=== PATIENT | female | born 1980 | race Two or more races ===

== ENCOUNTER 2021-07-21 21:03 | Observation (INO) | payer BC, SELFPAY ==
[2021-07-21 21:04] VITALS: BP 218/174; PULSE 97; RESP 16; TEMP 36.6; O2SAT 100; BMI 28.3
--- NOTE | 2021-07-21 21:17 | CT_ITS ---
STUDY: CT ABDOMEN AND PELVIS WITHOUT CONTRAST REASON FOR EXAM: Female, 41 years old. Pain RADIATION DOSAGE (If Supplied By Facility): CTDIvol = ( 10.25 ) mGy, DLP = ( 471.42 ) mGycm TECHNIQUE: Transaxial images were obtained from the dome of the diaphragm to the symphysis pubis without oral contrast, and without intravenous contrast. Sagittal and coronal images were reconstructed. Individualized dose optimization techniques were used for this CT. COMPARISON: None. FINDINGS: The visualized lung bases are unremarkable. The visualized portions of the heart are within normal limits. Normal liver. The gallbladder is mildly distended, measuring approximately 10 cm in length by 4.5 cm in transverse diameter. Slightly increased density noted in the dependent portion of the gallbladder suggesting sludge. No calcified gallstones are seen. No definite pericholecystic fluid or stranding is identified. The bile ducts are normal in caliber. No calcified common duct stones are noted. Normal spleen. Normal pancreas. Normal bilateral adrenal glands. Normal right kidney. Normal left kidney. No renal or obstructing ureteral stones. No hydronephrosis. Normal visualized stomach. Normal small intestine. Normal colon. The appendix is visualized and appears normal. Small nonspecific mesenteric lymph nodes are present. A few small pericecal lymph nodes are present but these do not fulfill the size criteria for mesenteric adenitis. Normal abdominal aorta. Normal inferior vena cava. Normal retroperitoneum. Normal urinary bladder. Normal size uterus and ovaries. No adnexal mass. Normal abdominal wall. No acute osseous abnormality. Mild degenerative disc disease at the L5/S1 level. CT/Abdomen/Pelvis without Cont IMPRESSION: Mildly distended gallbladder with possible sludge. Correlate with ultrasound may be of benefit to evaluate for possible cholelithiasis. No biliary ductal dilatation. Otherwise negative. Normal appendix. No findings of small bowel obstruction or obstructive uropathy. Electronically Signed: Navjot Amos MD at 22:55 EDT ,
--- NOTE | 2021-07-21 21:17 | ED.VIS.GI ---
HPI HPI - GI History of Present Illness Chief Complaint: Abd Pain Detail of Chief Complaint: Abdominal pain Informant: patient Abdominal Pain/Flank Pain Current Severity: 01/06 Narrative Narrative: Patient presents with abdominal pain intermittently for a month. Patient states that she over the last 4 days has had continuous pain with frequent nausea and vomiting. She denies any fevers. She denies diarrhea. She denies urinary symptoms. She denies blood in her stool or urine. She has a [id number] baby at home and she is not currently nursing. No prior abdominal surgeries. Patient rates the pain a 10 out of 10. PFSH PFSH Medical History no medical history Allergy/AdvReac Type Severity Reaction Status Date / Time No Known Allergies Allergy Verified 07/21/21 21:06 Social History Smoking Status: Never smoker ROS ROS ED Constitutional Constitutional ED: Reports systems reviewed and no addt'l complaints, except as documented; Denies body ache(s), change in weight or chills Eyes Eyes: Denies acute decrease in peripheral vision, change in vision, double vision or loss of vision ENT ENT ED: Reports none; Denies ear pain, lip swelling, loss taste/smell, neck pain, otalgia or sore throat Cardiovascular Cardiovascular: Reports none; Denies abdominal pain, chest pain with activity, leg edema, lightheadedness, palpitations, rapid heart rate or syncope Respiratory/Chest Respiratory/Chest: Reports none; Denies change in mental status, dry cough, dyspnea, hemoptysis, shortness of breath at rest or shortness of breath with exertion Gastrointestinal Gastrointestinal: Reports none, abdominal pain, nausea and vomiting; Denies change in stool character, diarrhea, hematemesis, hematochezia, melena or rectal bleeding Genitourinary Genitourinary ED: Reports none; Denies abdominal discomfort, anuria, dysuria, genital pain or polyuria Musculoskeletal Musculoskeletal: Reports none; Denies arthralgias, back pain, difficulty walking, extremity pain, muscle weakness or myalgias Integumentary Reports none; Denies abscess or rash Neurologic Neurologic: Reports none; Denies abnormal gait, confusion, focal weakness, frequent falls, headache(s), loss of vision, numbness, paresthesias, radicular pain, vertigo or weakness Psychiatric Psychiatric: Reports systems reviewed and no addt'l complaints, except as documented and none; Denies behavioral changes, confusion, difficulty concentrating, hallucinations, suicidal ideation, tactile hallucinations or visual hallucinations Endocrine Endocrinology: Denies none, cold intolerance, excessive sweating, fatigue or heat intolerance Hematologic/Lymphatic Hematologic/Lymphatic: Reports none; Denies anemia, easy bleeding or easy bruising Allergic/Immunologic Allergic/Immunologic ED: Denies as per HPI, none, lip swelling, mouth swelling, throat swelling, tongue swelling or hives EXAM Physical Exam Const Vital Signs: 07/21/21 21:04 07/21/21 23:24 Temperature 98 F Temperature Source Temporal Pulse Rate 97 72 Respiratory Rate 16 18 Blood Pressure 218/174 H 125/88 H Blood Pressure Mean 188 100 Pulse Ox 100 98 Oxygen Delivery Method Room Air Room Air Positive well nourished and well developed General Appearance ED: well developed and NAD HEENT Reports TM's clear and moist mucous membranes normocephalic and atraumatic; Negative for trauma or tenderness Tympanic Membrane ED: Yes TM's clear Eyes PERRL and EOMs intact bilaterally General Eye ED: Negative for pale conjunctiva or scleral icterus Neck no lymphadenopathy, supple and no JVD General: Negative for tenderness Chest Wall inspection of chest normal and palpation of chest normal Chest: Negative for tenderness Resp normal respiratory effort and clear to auscultation bilaterally Effort and Inspection: Negative for respiratory distress or pain with movement Auscultation: Negative for rhonchi, wheezes or diminished lung sounds Cardio regular rate, regular rhythm, S1 normal heart sound, S2 normal heart sound and no murmurs Peripheral Pulses: pulses 2+ throughout GI normal to inspection, nondistended, normoactive bowel sounds, soft to palpation, non-tender, non-distended and no masses Back/Spine no thoracic nor lumbar tenderness Back/Spine Narrative: Patient writhing around on cot as I enter the room. She points to her epigastric region as the source of the pain. Patient has mild diffuse tenderness over the epigastric region as well as the right upper quadrant. No Verduzco sign. There is no rebound, rigidity, peritoneal signs. Extremity normal to inspection General Extremety ED: Negative for edema General Extremity: Negative for edema Neuro oriented x3, CN's II-XII intact bilaterally, no sensory deficits noted and gait normal Sensorium / Orientation: awake, alert, oriented to person, oriented to place and oriented to time Motor Exam: strength 5/5 throughout and strength abnormal Psych mental status grossly normal Skin no rashes or lesions noted and no wounds MDM MDM MDM Narrative Medical decision making narrative: IV line established on arrival. Patient was medicated Dilaudid and Zofran. Patient initially had some mild pain relief and was given a second milligram of Dilaudid. Patient was started on Protonix and given a GI cocktail and continued to complain of severe pain. Patient was given 1/3 mg of Dilaudid IV. Lab work-up showed a slightly elevated white count of 11.7. Chemistries unremarkable. LFT showed a minimally elevated AST of 48. CT scan of the abdomen pelvis without contrast was obtained and showed moderately distended gallbladder with possibly some sludge without evidence of pericholecystic fluid or dilated ducts. At this point I discussed case with general surgeon on-call Dr. Gonsalez who recommended admission to medicine and possible GI consult for EGD. Etiology of her pain is unclear. She does not seem to have an acute abdomen but does have intractable pain. At this time etiology of pain is unclear but in the differential would be biliary colic versus gastritis versus peptic ulcer disease versus other. Discussed case with hospitalist who will evaluate patient for admission Lab Data Attestation: I reviewed the patient's lab results. Labs: Laboratory Results - last 24 hr 07/21/21 07/21/21 07/21/21 21:17 21:17 21:17 WBC 11.7 H RBC 5.33 Hgb 14.7 Hct 43.2 MCV 81.1 MCH 27.6 MCHC 34.0 RDW Std Deviation 34.6 L RDW Coeff of German 11.9 Plt Count 319 MPV 10.2 Immature Gran % (Auto) 0.300 Neut % (Auto) 65.1 Lymph % (Auto) 26.7 [place] % (Auto) 6.1 Eos % (Auto) 1.4 Baso % (Auto) 0.4 Absolute Neuts (auto) 7.6 Absolute Lymphs (auto) 3.13 Nucleated RBC % 0 Sodium 137 Potassium 4.4 Chloride 104 Carbon Dioxide 25.0 Anion Gap 8 BUN 10 Creatinine 0.81 Estim Creat Clear Calc 77.14 Est GFR (MDRD) Af Amer 101 Est GFR (MDRD) Non-Af 84 BUN/Creatinine Ratio 12.3 Glucose 116 H Lactic Acid Calcium 9.7 Total Bilirubin 0.50 AST 48 H ALT 37 Alkaline Phosphatase 83 Total Protein 8.2 Albumin 4.2 Globulin 4.0 Albumin/Globulin Ratio 1.0 Lipase 139 Serum , Qual NEGATIVE Urine Color Urine Clarity Urine pH Ur Specific [place] Urine Protein Urine Glucose (UA) Urine Ketones Urine Occult Blood Urine Nitrite Urine Bilirubin Urine Urobilinogen Ur Leukocyte Esterase Urine RBC Urine WBC Ur Squamous Epith Cells Urine Bacteria Urine Mucus 07/21/21 07/21/21 21:17 21:25 WBC RBC Hgb Hct MCV MCH MCHC RDW Std Deviation RDW Coeff of [place] Plt Count MPV Immature Gran % (Auto) Neut % (Auto) Lymph % (Auto) [place] % (Auto) Eos % (Auto) Baso % (Auto) Absolute Neuts (auto) Absolute Lymphs (auto) Nucleated RBC % Sodium Potassium Chloride Carbon Dioxide Anion Gap BUN Creatinine Estim Creat Clear Calc Est GFR (MDRD) Af Amer Est GFR (MDRD) Non-Af BUN/Creatinine Ratio Glucose Lactic Acid 1.5 Calcium Total Bilirubin AST ALT Alkaline Phosphatase Total Protein Albumin Globulin Albumin/Globulin Ratio Lipase Serum , Qual Urine Color Yellow Urine Clarity Clear Urine pH 8.0 Ur Specific [place] 1.010 Urine Protein Negative Urine Glucose (UA) Normal Urine Ketones Negative Urine Occult Blood Negative Urine Nitrite Negative Urine Bilirubin Negative Urine Urobilinogen Normal Ur Leukocyte Esterase 25 H Urine RBC 0 SEEN Urine WBC 0-5 SEEN Ur Squamous Epith Cells 0-5 SEEN Urine Bacteria 0 SEEN Urine Mucus 0 SEEN Radiography Diagnostic Testing: Clinical Impression(s) from Imaging Studies Abdomen/Pelvis CT 07/21/21 21:17 IMPRESSION: Mildly distended gallbladder with possible sludge. Correlate with ultrasound may be of benefit to evaluate for possible cholelithiasis. No biliary ductal dilatation. Otherwise negative. Normal appendix. No findings of small bowel obstruction or obstructive uropathy. Electronically Signed: Navjot Amos MD at 22:55 EDT , Discharge Plan Triage Chief Complaint: Abd Pain ED Provider: Chanel Multani Dx/Rx/DC Orders Clinical Impression: Intractable abdominal pain, Vomiting Primary Care Provider: Care Physician,No Primary Referrals: Care Physician,No Primary [Primary Care Provider] - Disposition Disposition: [facility]
[2021-07-21 21:27] LABS: Bacteria 0 SEEN /hpf (None Seen); Mucous, Urine 0 SEEN /hpf (<or=2+); Red Blood Cells-Urine 0 SEEN /hpf (0-5)
[2021-07-21] MEDS: Ondansetron 4 MG/2 ML Vial IV (21:28)
[2021-07-21] MEDS: 0.9% Normal Saline 1,000 ML 125 ML IV (21:28)
[2021-07-21] MEDS: HYDROmorphone 1 MG/ML Syringe IV ×3 (21:28→23:20)
[2021-07-21 21:30] LABS: Absolute Lymphocyte Count 3.13 X10^3/uL (0.83-4.51); Absolute Neutrophil Count 7.6 X10^3/uL (2.0-7.7); Basophil# 0.05 X10^3/uL; Basophil% 0.4 % (0-1); Eosinophil# 0.16 X10^3/uL; Eosinophils% 1.4 % (0-5); Hematocrit 43.2 % (37-47); Hemoglobin 14.7 g/dL (12.0-15.0); Lymphocyte # 3.13 X10^3/ul (0.83-4.51); Lymphocyte % 26.7 % (19-41); Mean Corpuscular Hgb 27.6 pg (27.0-32.0); Mean Corpuscular Volume 81.1 fL (81-99); Mean Platelet Vol. 10.2 fl (6.2-12.0); Monocyte# 0.72 X10^3/uL; Monocyte% 6.1 % (0-10); NRBC Flagged by Analyzer 0 % (0-5); Neutrophil # 7.62 X10^3/uL (2.7-7.7); Neutrophil % 65.1 % (47-70); Platelet Count 319 K/mm3 (150-450); RBC Distribution Width CV 11.9 % (11.6-14.6); RBC Distribution Width SD 34.6 fl (35.1-43.9); Red Blood Count 5.33 M/mm3 (4.2-5.4); White Blood Count 11.7 K/mm3 (4.4-11.0)
[2021-07-21 21:31] LABS: Color, Urine Yellow (Yellow); Glucose, Dipstick Normal (Normal); Ketone-Dipstick Negative (Negative); Leukocyte Esterase-Dipstick 25 /ul (Negative); Nitrite-Dipstick Negative (Negative); Occult Blood-Urine Negative /ul (Negative); Protein-Dipstick Negative (Negative); Urine Bilirubin Dipstick Negative (Negative); Urine Clarity Clear (Clear); Urine Urobilinogen Normal (Normal)
[2021-07-21 21:42] LABS: Internal QC Validated? YES +Cl - CLEAR BKGD; Pregnancy, Serum, hCG Quali. NEGATIVE Negative
[2021-07-21 21:43] LABS: Squamous Epithelial Cells - UA 0-5 SEEN /hpf (5-10); White Blood Cells 0-5 SEEN /hpf (0-5)
[2021-07-21 21:53] LABS: AST(SGOT) 48 U/L (15-37); Alanine Aminotransfer ALT/SGPT 37 U/L (13-56); Albumin, Serum 4.2 g/dL (3.2-5.0); Alkaline Phosphatase 83 U/L (45-117); Anion Gap 8 (5-15); BUN 10 mg/dL (7-18); BUN/Creat Ratio 12.3 RATIO (10-20); Calcium,Total 9.7 mg/dL (8.5-10.1); Chloride 104 mmol/L (98-107); Creatinine, Serum 0.81 mg/dL (0.55-1.02); EST Glomerular Filtration Rate 84 mL/min (>60); Est Glom Filt Rate - Afr Amer 101 mL/min (>60); Estimated Creatinine Clearance 77.14 ml/min; Glucose 116 mg/dL (74-106); Lipase 139 U/L (73-393); Potassium 4.4 mmol/L (3.5-5.1); Protein, Total 8.2 g/dL (6.4-8.2); Sodium Level 137 mmol/L (136-145)
[2021-07-21 21:59] LABS: Lactic Acid 1.5 mmol/L (0.4-1.9)
[2021-07-21] MEDS: Mag Hydrox/Al Hydrox/Simeth 30 ML UDC PO (23:10)
[2021-07-21 23:24] VITALS: BP 125/88; PULSE 72; RESP 18; O2SAT 98
--- NOTE | 2021-07-21 23:51 | PCM.HP.STD ---
HPI - General HPI Narrative KEVON SIMON, is a 41 F who presents with intermittent epigastric abdominal pain. She says that this has led to some bloating and intermittent episodes of emesis. She says has been going on for several months but over the last week its gotten a little bit more consistent and then tonight the pain was significant enough that she had to come into the ER. She has not tried any medications for this as an outpatient other than Pepto-Bismol which did not help but it did turn her stools dark. In the ER all of the findings were unremarkable she has a slight elevation in her white blood cell count which could be due to stress, her CT scan demonstrates a mildly distended gallbladder with possible sludge. [facility] Medical History no medical history Allergy/AdvReac Type Severity Reaction Status Date / Time No Known Allergies Allergy Verified 07/21/21 21:06 Family History (Updated 07/22/21 @ 00:[address] Jae Jennings MD) Other Cancer Diabetes Heart disease Surgical History no surgical history no surgical history Social History Smoking Status: Never smoker ROS Constitutional Constitutional: Denies chills, fatigue, fever(s) or malaise Eyes Eyes: Denies blurry vision ENT HEENT: Denies headache(s) or nasal discharge Cardiovascular Cardiovascular: Denies chest pain, dyspnea on exertion or syncope Respiratory/Chest Respiratory/Chest: Denies cough, shortness of breath at rest or shortness of breath with exertion Gastrointestinal Gastrointestinal: Reports abdominal pain, bloating, nausea and vomiting; Denies constipation or diarrhea Genitourinary Genitourinary: Denies dysuria Neurologic Neurologic: Denies focal weakness, numbness or tremor(s) Psychiatric Psychiatric: Denies anxiety or depression Vital Signs Vital Signs Vital Signs: 07/21/21 21:04 07/21/21 23:24 Temperature 98 F Temperature Source Temporal Pulse Rate 97 72 Respiratory Rate 16 18 Blood Pressure 218/174 H 125/88 H Blood Pressure Mean 188 100 Pulse Ox 100 98 Oxygen Delivery Method Room Air Room Air Weight Weight: 160 lb Body Mass Index (BMI) 28.3 Physical Exam Const alert, oriented x3 and no apparent distress General Appearance: cooperative HEENT normocephalic and moist oral mucous membranes Eyes PERRL, EOMs intact bilaterally and conjunctivae normal Neck supple and no JVD Resp normal respiratory effort, no retractions, no use of accessory muscles and clear to auscultation bilaterally Auscultation: Negative for crackles, rales, rhonchi or wheezes Cardio regular rate, regular rhythm, S1 normal heart sound, S2 normal heart sound and no murmurs GI soft to palpation, non-tender and non-distended; Negative for hepatosplenomegaly Extremity no clubbing, cyanosis or edema Skin no rashes or lesions noted Neuro no focal motor deficits and no sensory deficits noted Psych affect normal Appearance: appropriate Results Lab / Micro Data Result Diagrams: 07/21/21 21:17 07/21/21 21:17 Labs: Laboratory Results - last 24 hr 07/21/21 21:17: WBC 11.7 H, RBC 5.33, Hgb 14.7, Hct 43.2, MCV 81.1, MCH 27.6, MCHC 34.0, RDW Std Deviation 34.6 L, RDW Coeff of German 11.9, Plt Count 319, MPV 10.2, Immature Gran % (Auto) 0.300, Neut % (Auto) 65.1, Lymph % (Auto) 26.7, [place] % (Auto) 6.1, Eos % (Auto) 1.4, Baso % (Auto) 0.4, Absolute Neuts (auto) 7.6, Absolute Lymphs (auto) 3.13, Nucleated RBC % 0 07/21/21 21:17: Sodium 137, Potassium 4.4, Chloride 104, Carbon Dioxide 25.0, Anion Gap 8, BUN 10, Creatinine 0.81, Estim Creat Clear Calc 77.14, Est GFR (MDRD) Af Amer 101, Est GFR (MDRD) Non-Af 84, BUN/Creatinine Ratio 12.3, Glucose 116 H, Calcium 9.7, Total Bilirubin 0.50, AST 48 H, ALT 37, Alkaline Phosphatase 83, Total Protein 8.2, Albumin 4.2, Globulin 4.0, Albumin/Globulin Ratio 1.0, Lipase 139 07/21/21 21:17: Serum , Qual NEGATIVE 07/21/21 21:17: Urine Color Yellow, Urine Clarity Clear, Urine pH 8.0, Ur Specific [place] 1.010, Urine Protein Negative, Urine Glucose (UA) Normal, Urine Ketones Negative, Urine Occult Blood Negative, Urine Nitrite Negative, Urine Bilirubin Negative, Urine Urobilinogen Normal, Ur Leukocyte Esterase 25 H, Urine RBC 0 SEEN, Urine WBC 0-5 SEEN, Ur Squamous Epith Cells 0-5 SEEN, Urine Bacteria 0 SEEN, Urine Mucus 0 SEEN 07/21/21 21:25: Lactic Acid 1.5 Radiology Impression Abdomen/Pelvis CT 07/21/21 21:17 IMPRESSION: Mildly distended gallbladder with possible sludge. Correlate with ultrasound may be of benefit to evaluate for possible cholelithiasis. No biliary ductal dilatation. Otherwise negative. Normal appendix. No findings of small bowel obstruction or obstructive uropathy. Electronically Signed: Navjot Amos MD at 22:55 EDT , Assessment & Plan Assessment/Plan (1) Intractable abdominal pain: PLAN: 1. Intractable abdominal pain ? We will place her on Mylanta and a PPI ? We will obtain a right upper quadrant ultrasound for further clarification of the gallbladder findings on CT scan, if the gallbladder is unremarkable could likely discharge home on a PPI with outpatient follow-up ? Tylenol for pain DVT: Ambulation Charges/Coding Visit Charges OBSV E&M: 81096 Initial observation care L2
[2021-07-22] VITALS (14 sets, daily range): BP systolic 101–134; BP diastolic 64–80; PULSE 50–94; RESP 14–16; TEMP 36.3–37.3; O2SAT 92–100; BMI 28.8
--- NOTE | 2021-07-22 | GALL_PTH ---
PATIENT: KEVON SIMON LOC: MS3 U#:[id number] AGE/SX: 41/F ROOM: MA316 RE07/21/[address]: Dr. Carie Rojas MD : 1980 BED: 1 DIS: 07/23/2021 SPEC #: [id number] RECD: 07/23/21 12:44 STATUS: JESUS REQ #: [id number] ALLYSON: 07/22/21 00:[address]: Ivan Gonsalez DEPT: SURGICAL PATHOLOGY RECD BY: Mike Roy ENTERED: 07/23/21 12:44 SP TYPE: GALLBLADDE OTHR DR: MD Dr. Ivan Walker MD Dr. Nicholas F Kotsonis, MD Dr. Rahsaan Friend, DO No Primary Care Phys Tissues: Gallbladder, NOS Procedures: Surgery Specimen Level III Comments: @ Ordering doctor for SUIII edited from to DR.DPEABO Braden MUNSON at 07/23/21 1451 @ Submitting doctor edited from to @ by ARPIT at 07/23/211450 HEADER OPERATION: Laparoscopic cholecystectomy with IOC PRE-OP DIAGNOSIS: Cholelithiasis and cholecystitis TISSUE SUBMITTED: Gallbladder MICROSCOPIC DIAGNOSIS Gallbladder, cholecystectomy: Acute and chronic cholecystitis and cholelithiasis. Reactive epithelial changes. DELMER:roni 07/24/2021 MICROSCOPIC DESCRIPTION Slides are reviewed. GROSS DESCRIPTION Received is one container labeled with the patient's name and designated gallbladder. The specimen consists of a gallbladder measuring 8.5 cm in length and up to 4.5 cm in diameter. The external surface is pink-lion, smooth and glistening for the most part. Focally it is granular, hemorrhagic and contains cautery artifact. The gallbladder contains hemorrhagic mucoid bile and multiple mulberry, yellowish-green stones measuring in aggregate 3.5 x 3 x 0.5 cm and 0.5 cm in average dimension. The mucosa is congested and hemorrhagic. The gallbladder wall measures up to 0.5 cm in thickness. Director Of Reservations sections from the gallbladder and the cystic duct are submitted in one cassette. / DELMER:roni 07/23/2021 TC:2 CPT: 48413
--- NOTE | 2021-07-22 05:55 | US_ITS ---
STUDY: ABDOMINAL ULTRASOUND - RIGHT UPPER QUADRANT REASON FOR VISIT: Female, 41 years old abdominal pain, distended gallbladder TECHNIQUE: Ultrasound evaluation of the right upper quadrant was performed with real-time and static [place] rio-scale imaging. TECHNICAL QUALITY: Adequate. COMPARISON: CT abdomen and pelvis without contrast from 07/21/2021 FINDINGS: Liver: The liver measures 12.1 cm. There is normal echogenicity of the liver. The bile ducts are within normal limits. There is hepatic color flow. The direction of portal flow is hepatopetal. There is no demonstrated mass lesion. Gallbladder: Normal distended gallbladder. The gallbladder wall measures 4 mm and is slightly thickened. There is a negative sonographic Verduzco''s sign. There is trace pericholecystic fluid. Cholelithiasis and gallbladder sludge Common Bile Duct (C.B.D.): The common bile duct measures 3 mm. Pancreas: The visualized portions of the pancreatic head, body, and tail are unremarkable. Right Kidney: Normal size of the right kidney. The right kidney measures 10.3 x 3.2 x 3.6 cm. Normal renal cortex. The right cortex measures 1.3 cm. There is no demonstrated renal mass or cyst. There is no right hydronephrosis. US/Gallbladder IMPRESSION: Cholelithiasis and gallbladder sludge with slight gallbladder wall thickening and trace pericholecystic fluid which may relate to acute cholecystitis in the appropriate clinical setting. HIDA scan could also be obtained for further assessment. Electronically Signed: Carlos Austin, at 11:35 EDT ,
[2021-07-22 06:27] LABS: Absolute Lymphocyte Count 2.09 X10^3/uL (0.83-4.51); Absolute Neutrophil Count 10.4 X10^3/uL (2.0-7.7); Basophil# 0.04 X10^3/uL; Basophil% 0.3 % (0-1); Eosinophil# 0.03 X10^3/uL; Eosinophils% 0.2 % (0-5); Hematocrit 41.8 % (37-47); Hemoglobin 13.9 g/dL (12.0-15.0); Lymphocyte # 2.09 X10^3/ul (0.83-4.51); Lymphocyte % 15.4 % (19-41); Mean Corp Hgb Conc 33.3 g/dL (32-36); Mean Corpuscular Hgb 27.6 pg (27.0-32.0); Mean Corpuscular Volume 83.1 fL (81-99); Mean Platelet Vol. 10.4 fl (6.2-12.0); Monocyte# 0.91 X10^3/uL; Monocyte% 6.7 % (0-10); NRBC Flagged by Analyzer 0 % (0-5); Platelet Count 273 K/mm3 (150-450); RBC Distribution Width CV 11.9 % (11.6-14.6); RBC Distribution Width SD 35.6 fl (35.1-43.9); Red Blood Count 5.03 M/mm3 (4.2-5.4); White Blood Count 13.5 K/mm3 (4.4-11.0)
[2021-07-22 06:46] LABS: Anion Gap 5 (5-15); BUN 8 mg/dL (7-18); BUN/Creat Ratio 12.7 RATIO (10-20); Calcium,Total 8.3 mg/dL (8.5-10.1); Chloride 104 mmol/L (98-107); Creatinine, Serum 0.63 mg/dL (0.55-1.02); EST Glomerular Filtration Rate 111 mL/min (>60); Est Glom Filt Rate - Afr Amer 135 mL/min (>60); Estimated Creatinine Clearance 99.17 ml/min; Glucose 121 mg/dL (74-106); Potassium 3.7 mmol/L (3.5-5.1); Sodium Level 135 mmol/L (136-145)
--- NOTE | 2021-07-22 09:36 | PN.HOSP_ITS ---
Subjective Subjective Follow-up on acute abdominal pain: Patient was seen and examined. She complains of severe crampy epigastric pain, a ggravated by vomiting, with no relieving factors. Her epigastric pain is not related to food and she feels hungry at the time of exam. It appeared to be mostly at night except in the last few days when it has been constant. She stated she has seen black tarry stools but that coincided with start of Pepto- Bismol. She denies any diarrhea or fever or chills. Objective Data Objective Data Vital Signs: Vital Signs Temp Pulse Resp BP Pulse Ox 99.2 F H 77 16 126/80 H 98 07/22/21 07:57 07/22/21 07:57 07/22/21 07:57 07/22/21 07:57 07/22/21 07:57 Oxygen Delivery Method Room Air Weight: 73.7 kg Body Mass Index (BMI) 28.8 Intake & Output: Intake and Output for Last 24 Hours 07/20/21 07/21/21 07/22/21 23:59 23:59 23:59 Intake Total 110 / 110 1120 / 1120 Balance 110 / 110 1120 / 1120 Lab / Micro Data Result Diagrams: 07/22/21 05:30 07/22/21 05:30 Labs: Laboratory Results - last 24 hr 07/21/21 21:17: WBC 11.7 H, RBC 5.33, Hgb 14.7, Hct 43.2, MCV 81.1, MCH 27.6, MCHC 34.0, RDW Std Deviation 34.6 L, RDW Coeff of German 11.9, Plt Count 319, MPV 10.2, Immature Gran % (Auto) 0.300, Neut % (Auto) 65.1, Lymph % (Auto) 26.7, [place] % (Auto) 6.1, Eos % (Auto) 1.4, Baso % (Auto) 0.4, Absolute Neuts (auto) 7.6, Absolute Lymphs (auto) 3.13, Nucleated RBC % 0 07/21/21 21:17: Sodium 137, Potassium 4.4, Chloride 104, Carbon Dioxide 25.0, Anion Gap 8, BUN 10, Creatinine 0.81, Estim Creat Clear Calc 77.14, Est GFR (MDRD) Af Amer 101, Est GFR (MDRD) Non-Af 84, BUN/Creatinine Ratio 12.3, Glucose 116 H, Calcium 9.7, Total Bilirubin 0.50, AST 48 H, ALT 37, Alkaline Phosphatase 83, Total Protein 8.2, Albumin 4.2, Globulin 4.0, Albumin/Globulin Ratio 1.0, Lipase 139 07/21/21 21:17: Serum , Qual NEGATIVE 07/21/21 21:17: Urine Color Yellow, Urine Clarity Clear, Urine pH 8.0, Ur Specific [place] 1.010, Urine Protein Negative, Urine Glucose (UA) Normal, Urine Ketones Negative, Urine Occult Blood Negative, Urine Nitrite Negative, Urine Bilirubin Negative, Urine Urobilinogen Normal, Ur Leukocyte Esterase 25 H, Urine RBC 0 SEEN, Urine WBC 0-5 SEEN, Ur Squamous Epith Cells 0-5 SEEN, Urine Bacteria 0 SEEN, Urine Mucus 0 SEEN 07/21/21 21:25: Lactic Acid 1.5 07/22/21 05:30: Sodium 135 L, Potassium 3.7, Chloride 104, Carbon Dioxide 26.0, Anion Gap 5, BUN 8, Creatinine 0.63, Estim Creat Clear Calc 99.17, Est GFR (MDRD) Af Amer 135, Est GFR (MDRD) Non-Af 111, BUN/Creatinine Ratio 12.7, Glucose 121 H, Calcium 8.3 L 07/22/21 05:30: WBC 13.5 H, RBC 5.03, Hgb 13.9, Hct 41.8, MCV 83.1, MCH 27.6, MCHC 33.3, RDW Std Deviation 35.6, RDW Coeff of German 11.9, Plt Count 273, MPV 10.4, Immature Gran % (Auto) 0.400, Neut % (Auto) 77.0 H, Lymph % (Auto) 15.4 L, [place] % (Auto) 6.7, Eos % (Auto) 0.2, Baso % (Auto) 0.3, Absolute Neuts (auto) 10.4 H, Absolute Lymphs (auto) 2.09, Nucleated RBC % 0 Radiography Diagnostic Testing: Radiology Impression Abdomen/Pelvis CT 07/21/21 21:17 IMPRESSION: Mildly distended gallbladder with possible sludge. Correlate with ultrasound may be of benefit to evaluate for possible cholelithiasis. No biliary ductal dilatation. Otherwise negative. Normal appendix. No findings of small bowel obstruction or obstructive uropathy. Electronically Signed: Navjot Amos MD at 22:55 EDT , Physical Exam Narrative Physical exam: General: Alert, Oriented x3, Cooperative, in pain, mildly dehydrated HEENT: Atraumatic Oral: Dry oral Mucosa Neck: Supple Lungs: Diminished to auscultation Cardiovascular: HS I+II, regular, no murmurs Abdomen: Bowel Sounds Present, soft, epigastric tenderness++, mild RUQ tenderness without guarding or RBT Extremities: No edema Assessment & Plan Assessment/Plan (1) Intractable abdominal pain: PLAN: 1. Acute intractable abdominal pain, likely secondary to acute gastritis vs PUD vs biliary colic CT abd/pelvis showed biliary sludge but no gallstone Will follow-up on gallbladder USG Continue NPO, IVF, IV PPI BID 2. Leukocytosis, likely reactive, will continue to follow 3. DVT PPx - low risk, early ambulation Charges/Coding Visit Charges OBSV E&M: 32014 Subsequent observation care L3
[2021-07-22] MEDS: Morphine 2 MG/ML Syringe 1 MG IV (09:46)
[2021-07-22] MEDS: 0.9% Saline Lock 10 ML Syringe IV ×2 (09:47→18:44)
[2021-07-22] MEDS: Ondansetron 4 MG/2 ML Vial IV (09:47)
[2021-07-22] MEDS: 0.9% Normal Saline 1,000 ML 75 ML IV (10:53)
--- NOTE | 2021-07-22 13:15 | CON.PCM.SX_ITS ---
Assessment & Plan Assessment/Plan (1) Cholelithiasis and cholecystitis without obstruction: QUALIFIERS: Cholelithiasis location: gallbladder Cholecystitis acuity: acute Qualified Code(s): K80.00 - Calculus of gallbladder with acute ch olecystitis without obstruction PLAN: My plan is to perform a laparoscopic cholecystectomy with intraoperative cholangiogram. The planned surgical procedure was discussed extensively with the patient. The risks, benefits, anticipated outcomes and possible complication were mentioned. My staff has also explained the procedure in understandable terms and the patient was given the option to take printed material concerning the planned procedure. The patient had the opportunity to ask questions concerning the planned procedure. The patient freely consents to the planned procedure. HPI Consult Data Date of Consult: 07/22/21 HPI Narrative HPI Narrative: KEVON SIMON, is a 41 F who presents with intermittent epigastri c abdominal pain. She says that this has led to some bloating and intermittent episodes of emesis. She says has been going on for several months but over the last week its gotten a little bit more consistent and then tonight the pain was significant enough that she had to come into the ER. She has not tried any medications for this as an outpatient other than Pepto-Bismol which did not help but it did turn her stools dark. In the ER all of the findings were unremarkable she has a slight elevation in her white blood cell count which could be due to stress, her CT scan demonstrates a mildly distended gallbladder with possible sludge. Gallbladder ultrasound impression: Cholelithiasis and gallbladder sludge with slight gallbladder wall thickening and trace pericholecystic fluid which may relate to acute cholecystitis in the appropriate clinical setting. HIDA scan could also be obtained for further assessment. PFSH Medical History Depression GERD (gastroesophageal reflux disease) Medical History no medical history Allergy/AdvReac Type Severity Reaction Status Date / Time No Known Allergies Allergy Verified 07/21/21 21:06 Family History Other Cancer Diabetes Heart disease Surgical History no surgical history Social History Smoking Status: Never smoker ROS Constitutional Constitutional: Denies chills, fatigue or fever(s) Cardiovascular Cardiovascular: Denies chest pain or chest pain with activity Respiratory/Chest Respiratory/Chest: Denies cough or shortness of breath at rest Gastrointestinal Gastrointestinal: Reports abdominal pain, bloating, nausea and vomiting; Denies constipation or diarrhea Genitourinary Genitourinary: Denies dysuria Physical Exam Const alert, oriented x3 and no apparent distress General Appearance: cooperative HEENT normocephalic and head/scalp atraumatic Eyes PERRL and EOMs intact bilaterally Resp clear to auscultation bilaterally Cardio Rate: regular rate Rhythm: regular rhythm GI soft to palpation Palpation: tender RUQ Lab / Micro Data Result Diagrams: 07/22/21 05:30 07/22/21 05:30 Labs: Laboratory Results - last 24 hr 07/21/21 21:17: WBC 11.7 H, RBC 5.33, Hgb 14.7, Hct 43.2, MCV 81.1, MCH 27.6, MCHC 34.0, RDW Std Deviation 34.6 L, RDW Coeff of German 11.9, Plt Count 319, MPV 10.2, Immature Gran % (Auto) 0.300, Neut % (Auto) 65.1, Lymph % (Auto) 26.7, [place] % (Auto) 6.1, Eos % (Auto) 1.4, Baso % (Auto) 0.4, Absolute Neuts (auto) 7.6, Absolute Lymphs (auto) 3.13, Nucleated RBC % 0 07/21/21 21:17: Sodium 137, Potassium 4.4, Chloride 104, Carbon Dioxide 25.0, Anion Gap 8, BUN 10, Creatinine 0.81, Estim Creat Clear Calc 77.14, Est GFR (MDRD) Af Amer 101, Est GFR (MDRD) Non-Af 84, BUN/Creatinine Ratio 12.3, Glucose 116 H, Calcium 9.7, Total Bilirubin 0.50, AST 48 H, ALT 37, Alkaline Phosphatase 83, Total Protein 8.2, Albumin 4.2, Globulin 4.0, Albumin/Globulin Ratio 1.0, Lipase 139 07/21/21 21:17: Serum , Qual NEGATIVE 07/21/21 21:17: Urine Color Yellow, Urine Clarity Clear, Urine pH 8.0, Ur Specific [place] 1.010, Urine Protein Negative, Urine Glucose (UA) Normal, Urine Ketones Negative, Urine Occult Blood Negative, Urine Nitrite Negative, Urine Bilirubin Negative, Urine Urobilinogen Normal, Ur Leukocyte Esterase 25 H, Urine RBC 0 SEEN, Urine WBC 0-5 SEEN, Ur Squamous Epith Cells 0-5 SEEN, Urine Bacteria 0 SEEN, Urine Mucus 0 SEEN 07/21/21 21:25: Lactic Acid 1.5 07/22/21 05:30: Sodium 135 L, Potassium 3.7, Chloride 104, Carbon Dioxide 26.0, Anion Gap 5, BUN 8, Creatinine 0.63, Estim Creat Clear Calc 99.17, Est GFR (MDRD) Af Amer 135, Est GFR (MDRD) Non-Af 111, BUN/Creatinine Ratio 12.7, Glucose 121 H, Calcium 8.3 L 07/22/21 05:30: WBC 13.5 H, RBC 5.03, Hgb 13.9, Hct 41.8, MCV 83.1, MCH 27.6, MCHC 33.3, RDW Std Deviation 35.6, RDW Coeff of German 11.9, Plt Count 273, MPV 10.4, Immature Gran % (Auto) 0.400, Neut % (Auto) 77.0 H, Lymph % (Auto) 15.4 L, [place] % (Auto) 6.7, Eos % (Auto) 0.2, Baso % (Auto) 0.3, Absolute Neuts (auto) 10.4 H, Absolute Lymphs (auto) 2.09, Nucleated RBC % 0 Radiology Impression Abdomen/Pelvis CT 07/21/21 21:17 IMPRESSION: Mildly distended gallbladder with possible sludge. Correlate with ultrasound may be of benefit to evaluate for possible cholelithiasis. No biliary ductal dilatation. Otherwise negative. Normal appendix. No findings of small bowel obstruction or obstructive uropathy. Electronically Signed: Navjot Amos MD at 22:55 EDT , Gallbladder Ultrasound 07/22/21 05:55 IMPRESSION: Cholelithiasis and gallbladder sludge with slight gallbladder wall thickening and trace pericholecystic fluid which may relate to acute cholecystitis in the appropriate clinical setting. HIDA scan could also be obtained for further assessment. Electronically Signed: Carlos Avila, at 11:35 EDT ,
--- NOTE | 2021-07-22 13:30 | EKG12_ITS ---
Test Reason : PRE OP Blood Pressure : / mmHG Vent. Rate : 072 BPM Atrial Rate : 072 BPM P-R Int : 140 ms QRS Dur : 076 ms QT Int : 368 ms P-R-T Axes : 042 032 030 degrees QTc Int : 402 ms Normal sinus rhythm Normal ECG Confirmed by WILL ABBOTT, CUAUHTEMOC ([id number]), material expeditor EVELYN GALINDO ([id number]) on 07/24/2021 10:08:26 AM Referred By: TRACEY Confirmed By:CUAUHTEMOC SOLIS MD
--- NOTE | 2021-07-22 14:17 | NURSING ---
Pt to surgery for lap sedrick via [facility], OR transporter. Family members aware and waiting in surgery waiting area.
[2021-07-22 14:27] LABS: Internal QC Validated? YES +Cl - CLEAR BKGD
[2021-07-22 14:28] LABS: Pregnancy, Urine Negative Negative
[2021-07-22] MEDS: Cefazolin 2 GM in 0.9% Normal Saline 100 ML IV (15:31)
--- NOTE | 2021-07-22 15:45 | RAD_ITS ---
CLINICAL HISTORY: Female, 41 years old. Abdominal pain. PROCEDURE: CHOLANGIOGRAM - intraoperative FLUOROSCOPY TIME (if supplied): 24.9 seconds TECHNIQUE: Fluoroscopic guidance was provided in the OR during the performance of a intraoperative cholangiogram. There is a cine aligned with 30 images demonstrate contrast injected through the cystic duct stump. There is opacification of a normal-appearing CBD with contrast flowing into the duodenum. There is also a series of 37 images demonstrate injection of contrast through the cystic duct stump. The visualized intra and extrahepatic bile ducts are normal without filling defect. Please refer to the procedural report for further details. RAD/Cholangiogram/ O R,Initial IMPRESSION: Fluoroscopy provided during an intraoperative cholangiogram. Electronically Signed: Brian Toro DO at 22:05 EDT ,
--- NOTE | 2021-07-22 16:01 | CASEMGMT ---
TORY CM in to pt room to discuss insurance questions. Spoke with pt family member, pt out of room. Answered questions to his satisfaction. He also is aware he may call his insurance company for further clarification if needed. He is aware that [facility] is in network with insurance.
[2021-07-22] MEDS: Sugammadex Sodium 200 MG/2 ML VIAL IV (16:38)
--- NOTE | 2021-07-22 16:39 | PCM.OPRPT ---
Problems Associated Problem List Diagnoses (1) Cholelithiasis and cholecystitis without obstruction: Report of Operation Date of Procedure: 07/22/21 Pre-Operative Diagnosis: Acute calculus cholecystitis Post-Operative Diagnosis: Same Surgery/Procedure Performed:: laparoscopically cystectomy with intraoperative cholangiograms Surgeon: Ivan Gonsalez ssrs report developer: Yolanda Dawson Type of Anesthesia: General Anesthesiologist: Angel Luis Ramirez Specimen's removed: Gallbladder Drains: None Estimated Blood Loss (mL): 50 cc Description of Procedure: Patient was brought into the operating room. Placed in the supine position. Under excellent general endotracheal ovation the abdomen was sterilely prepped and draped in usual fashion. Local was injected infraumbilically. Dissection was carried down to the fascia. The fascia was grasped with a [place]. Varies needle was placed inside the abdomen. The abdomen was insufflated to 15 torr. A 10/12 trocar was placed without difficulty. Patient was placed in the head up and rotated to the left position. A subxiphoid #5 trocar was placed, inferior to this another #5 trocar was placed, laterally a #5 trocar was placed. All of these were placed under direct visualization without injury to underlying structures. I aspirated out the gallbladder it was whitish fluid consistent with hydrops. Fundus of the gallbladder was grasped and retracted in cephalad direction. Infundibulum was grasped retracted laterally. She had somewhat of an abnormal anatomy with the cystic artery being anterior to the cystic duct I dissected this free placed hemoclips proximally and distally and ligated the artery. I then dissected down further dissecting out the cystic duct and the posterior branch of the cystic artery. I placed hemoclips proximally on the duct neck the duct placed an angiogram catheter through the skin and a cholangiogram catheter through this. Shot a cholangiogram which showed normal ductal anatomy. Removed the cholangiogram catheter in place another clip on the duct and then ligated the duct. Placed a Hemoclip on the posterior branch of the cystic artery. I deliver the gallbladder from the gallbladder bed with use of electrocautery. It was very edematous liver bed bled easily and was oozy. Once I got the gallbladder out I placed in a specimen bag and delivered through the umbilical port without difficulty. Attention was then drawn back to the liver bed itself with the use of electrocautery I was able to achieve good pneumostasis on the liver bed. When I was completed I placed Jessie on the liver bed I saw no signs of any continuing bleeding. The trochars were removed under direct visualization. Fascia the umbilical port was closed with a [id number] stitch of 0 Vicryl. Skin incisions were closed with subcuticular stitches of 4-0 Monocryl. Steri-Strips were applied sterile dressings were applied and the patient tolerated the procedure well. Admit VTE Documentation VTE Present on Admission: No VTE Mechan Device Prophylaxis: SCD's VTE Pharm Prophylaxis ordered?: No Reason prophylaxis not ordered:: Treatment Not Indicated
--- NOTE | 2021-07-22 16:48 | EX.PCM.DISCH ---
Discharge Instructions Procedure Gallbladder Diet Discharge Diet: Light diet - advance as tolerated Activity Discharge Activity: May Not Drive (for 2-3 days or while taking narcotic pain medications.) and - (Do not drive, work heavy equipment or sign legal documents for 24 hours.) May shower in (days): 1 (with the bandage in place.) Additional Activity Instructions:: Pain medication may cause nausea. You should typically eat light foods as you take your pain medications. Pain medication may also cause constipation. If this is a problem for you, please discuss with your doctor. Dressing / Incision Call your doctor if your incision/area has: Continuous Slow Oozing, Sudden Increased Bleeding, Increased Pain/ Swelling, Increased Redness and Foul Smelling Discharge Call your doctor if you observe: Fever of 101 or Higher Suture Line Care: Avoid Pulling/Pushing and Avoid Pinching/Bending Additional Dressing/Incision Instructions:: Leave operative bandaids on for 2 days. When you remove dressing, leave Steri-Strips on until your follow-up appointment, or until the Steri-Strips fall off on their own. Follow Up Care Please Follow Up With: Patti Penny PA-C When: Call office to schedule an appointment to be seen in 7 days after surgery. Test Results: Test results from this visit will be discussed in further detail at your follow-up appointment, if applicable. Discharge Plan Admission Admit Date/Time: 07/21/21 23:48 Attending Provider: Carie Rojas Primary Care Provider: Care Physician,No Primary Consulting Providers: Augustus Damon ; Ivan Gonsalez Discharge Orders/Prescriptions Prescriptions: New oxycodone-acetaminophen [Percocet] 5-325 mg tablet 1 tab PO Q4H PRN (Reason: pain) 5 Days Qty: 20 RF: 0 Referrals / Follow Up: Care Physician,No Primary [Primary Care Provider] - Patti Penny PA-C [PHYSICIAN HOSPICE MUSIC THERAPY] -
[2021-07-22] MEDS: 0.9% Normal Saline 1,000 ML 100 ML IV (18:44)
[2021-07-23 02:32] VITALS: BP 115/75; PULSE 91; RESP 18; TEMP 36.9; O2SAT 97
[2021-07-23] MEDS: 0.9% Normal Saline 1,000 ML 100 ML IV (05:17)
--- NOTE | 2021-07-23 07:36 | CON.PCM_ITS ---
Assessment & Plan Assessment/Plan (1) Cholelithiasis and cholecystitis without obstruction: QUALIFIERS: Cholelithiasis location: gallbladder Cholecystitis acuity: acute Qualified Code(s): K80.00 - Calculus of gallbladder with acute ch olecystitis without obstruction PLAN: She is doing well. Her white blood cell count is decreasing. She can have a low-fat diet. Discharge as per surgery. (2) Intractable abdominal pain: PLAN: Abdominal pain is improved. I would have her get stool testing for H. pylori as an outpatient. (3) GERD (gastroesophageal reflux disease): PLAN: Due to the fact that she does have had a history of gastroesophageal reflux disease and she is status post cholecystectomy I would put her on p antoprazole therapy 40 mg a day for approximately 8 weeks and slowly wean that off as her body gets used to having it increased bile. This will help decrease the chances of bile reflux gastritis and bile reflux esophagitis. HPI Consult Data Date of Consult: 07/23/21 HPI Narrative HPI Narrative: KEVON SIMON, is a 41 F who presents with abdominal pain intermittently for a month. She has a past medical history of occasional heartburn. She did have pretty significant reflux disease when she was . She does not take any medicines on a daily basis for heartburn.Patient states that she over the last 4 days has had continuous pain with frequent nausea and vomiting. She denies any fevers. She denies diarrhea. She denies urinary symptoms. She denies blood in her stool or urine. She has a [id number] baby at home and she is not currently nursing. No prior abdominal surgeries. Patient rates the pain a 10 out of 10.She underwent b iochemical testing and it showed an increased white blood cell count with mild dehydration and hypokalemia.She had an ultrasound that had shown a Thickened gallbladder wall. She underwent a cholecystectomy yesterday and was discovered to have acute cholecystitis. This morning she is not having much abdominal pain at all. She said the pain that she had previously is gone. She is concerned about possible gastritis and the need to take medicines. [facility] Medical History (Updated 07/23/21 @ 07:[address] Coffman Friend, ) Depression GERD (gastroesophageal reflux disease) Medical History no medical history Home Medications oxycodone-acetaminophen [Percocet] 1 tab PO Q4H PRN 5 Days #20 tab 07/22/21 [Rx Last Taken Unknown] Allergy/AdvReac Type Severity Reaction Status Date / Time No Known Allergies Allergy Verified 07/21/21 21:06 Family History Other Cancer Diabetes Heart disease Surgical History no surgical history Social History Smoking Status: Never smoker ROS Review of Systems ROS Unobtainable: other Constitutional Constitutional: Denies fatigue, fever(s), poor appetite, weight gain or weight loss ENT HEENT: Denies mouth lesions Cardiovascular Cardiovascular: Denies abdominal bloating, abdominal edema or abdominal pain Respiratory/Chest Respiratory/Chest: Denies change in mental status, change in phlegm color, chest congestion or chest tightness Gastrointestinal Gastrointestinal: Denies belching, bloating, change in bowel habits, change in stool character, chewing difficulty, coffee ground emesis, constipation, cramping, diarrhea, dyspepsia, dysphagia, early satiety, excessive flatus, fecal incontinence, heartburn, hematemesis, hematochezia, hemorrhoids, loose stools, melena, nausea, odynophagia, rectal bleeding, tenesmus, vomiting or weight changes Genitourinary Genitourinary: Denies abdominal discomfort, burning urination or itching Musculoskeletal Musculoskeletal: Reports as per HPI; Denies muscle weakness or myalgias Integumentary Integumentary: Denies jaundice Neurologic Neurologic: Denies lack of coordination or weakness Psychiatric Psychiatric: Denies confusion, depression, memory loss, mood swings, paranoia or suicidal ideation Endocrine Endocrinology: Denies systems reviewed and no addt'l complaints, except as documented Hematologic/Lymphatic Hematologic/Lymphatic: Denies anemia, easy bleeding, easy bruising or lymphadenopathy Allergic/Immunologic Allergic/Immunologic: Denies systems reviewed and no addt'l complaints, except as documented Physical Exam Const alert General Appearance: cooperative Orientation / Consciousness: oriented to person HEENT hearing grossly normal bilaterally Head and Scalp: normal to inspection Face and Sinus: face symmetric Nose: external nose normal Mouth: oral and palatal mucosa normal Eyes conjunctivae normal General Eye: normal appearance of both eyes Neck full ROM General: normal visual inspection Lymph Lymphatic: no lymphadenopathy noted Chest inspection of chest normal and palpation of chest normal Chest: symmetrical chest wall rise Resp normal respiratory effort Effort and Inspection: able to speak in complete sentences Cardio regular rate GI non-distended Percussion: normal to percussion Rectal Exam: deferred Neuro Speech: speech normal Gait (Neuro): normal gait Lab / Micro Data Result Diagrams: 07/22/21 05:30 07/22/21 05:30 Labs: Laboratory Results - last 24 hr 07/22/21 13:56: Urine Test Negative Micro: Microbiology 07/22/21 14:55 Interface Orders SARS-CoV-2 Antigen (Rapid) - Final Radiology Impression Gallbladder Ultrasound 07/22/21 05:55 IMPRESSION: Cholelithiasis and gallbladder sludge with slight gallbladder wall thickening and trace pericholecystic fluid which may relate to acute cholecystitis in the appropriate clinical setting. HIDA scan could also be obtained for further assessment. Electronically Signed: Carlos Avila, at 11:35 EDT Reading Location ID and State: [facility] / [place] Tel , Service support , Cholangiogram 07/22/21 15:45 IMPRESSION: Fluoroscopy provided during an intraoperative cholangiogram. Electronically Signed: Brian Toro DO at 22:05 EDT , Charges/Coding Visit Charges Inpatient E&M: 31120 Init Hosp L3
[2021-07-23 08:03] LABS: Absolute Lymphocyte Count 1.51 X10^3/uL (0.83-4.51); Absolute Neutrophil Count 10.7 X10^3/uL (2.0-7.7); Basophil# 0.02 X10^3/uL; Basophil% 0.1 % (0-1); Hematocrit 38.3 % (37-47); Hemoglobin 12.8 g/dL (12.0-15.0); Lymphocyte # 1.51 X10^3/ul (0.83-4.51); Lymphocyte % 11.3 % (19-41); Mean Corp Hgb Conc 33.4 g/dL (32-36); Mean Corpuscular Hgb 27.9 pg (27.0-32.0); Mean Corpuscular Volume 83.4 fL (81-99); Mean Platelet Vol. 9.8 fl (6.2-12.0); Monocyte# 1.13 X10^3/uL; Monocyte% 8.5 % (0-10); NRBC Flagged by Analyzer 0 % (0-5); Neutrophil # 10.65 X10^3/uL (2.7-7.7); Neutrophil % 79.7 % (47-70); Platelet Count 249 K/mm3 (150-450); RBC Distribution Width CV 11.9 % (11.6-14.6); RBC Distribution Width SD 36.4 fl (35.1-43.9); Red Blood Count 4.59 M/mm3 (4.2-5.4); White Blood Count 13.4 K/mm3 (4.4-11.0)
[2021-07-23 08:23] LABS: ALB/GLOB Ratio 0.8 RATIO (0.9-2.4); AST(SGOT) 81 U/L (15-37); Alanine Aminotransfer ALT/SGPT 65 U/L (13-56); Albumin, Serum 2.9 g/dL (3.2-5.0); Alkaline Phosphatase 62 U/L (45-117); Anion Gap 7 (5-15); BUN 8 mg/dL (7-18); BUN/Creat Ratio 10.9 RATIO (10-20); Calcium,Total 8.3 mg/dL (8.5-10.1); Chloride 108 mmol/L (98-107); Creatinine, Serum 0.74 mg/dL (0.55-1.02); EST Glomerular Filtration Rate 93 mL/min (>60); Est Glom Filt Rate - Afr Amer 113 mL/min (>60); Estimated Creatinine Clearance 84.43 ml/min; Globulin 3.6 g/dL (2.2-4.2); Glucose 113 mg/dL (74-106); Potassium 3.7 mmol/L (3.5-5.1); Protein, Total 6.5 g/dL (6.4-8.2); Sodium Level 139 mmol/L (136-145)
--- NOTE | 2021-07-23 09:42 | PCM.DC ---
Discharge Instructions Diet Discharge Diet: Light diet - advance as tolerated Activity May shower in (days): 1 (with the bandage in place.) Additional Activity Instructions:: Pain medication may cause nausea. You should typically eat light foods as you take your pain medications. Pain medication may also cause constipation. If this is a problem for you, please discuss with your doctor. Dressing / Incision Call your doctor if your incision/area has: Continuous Slow Oozing, Sudden Increased Bleeding, Increased Pain/ Swelling, Increased Redness and Foul Smelling Discharge Call your doctor if you observe: Fever of 101 or Higher Suture Line Care: Avoid Pulling/Pushing and Avoid Pinching/Bending Additional Dressing/Incision Instructions:: Leave operative bandaids on for 2 days. When you remove dressing, leave Steri-Strips on until your follow-up appointment, or until the Steri-Strips fall off on their own. Follow Up Care Please Follow Up With: Patti Penny PA-C Test Results: Test results from this visit will be discussed in further detail at your follow-up appointment, if applicable. Discharge Plan Admission Admit Date/Time: 07/21/21 23:48 Primary Reason for Your Visit: Acute abdominal pain Attending Provider: Carie Rojas Primary Care Provider: Care Physician,Kelsi Primary Consulting Providers: Augustus Damon ; Ivan Gonsalez Instructions Additional Instructions / Restrictions: You can take Ibuprofen 400mg every 6-8 hours alternating with Tylenol 650mg every 6 hours as needed for pain. You will need to see your primary care doctor within 1 week for repeat blood work. Discharge Orders/Prescriptions Prescriptions: New oxycodone-acetaminophen [Percocet] 5-325 mg tablet 1 tab PO Q4H PRN (Reason: pain) 5 Days Qty: 20 RF: 0 pantoprazole [Protonix] 40 mg tablet,delayed release (DR/EC) 40 mg PO DAILY 30 Days Qty: 30 RF: 0 Referrals / Follow Up: Care Physician,No Primary [Primary Care Provider] - Patti Penny PA-C [PHYSICIAN FAMILY SERVICE COUNSELOR] - Augustus Damon DO [STAFF PHYSICIAN] - Within 2 Weeks (if abdominal pain persists) Disposition Disposition (needs filled in before D/C Order can be placed): Home, Self Care
--- NOTE | 2021-07-23 09:47 | DS.PCM_ITS ---
Providers Date of Admission: 07/21/21 Date of Discharge: 07/23/21 Primary Care Physician: Kelsi Primary Care Phys Consultations 07/22/21 09:56 Consult: Gastroenterology Routine Consulting Provider: Augustus Damon Reason for Consult: Dyspepsia EMERGENT Consult: No Notified: Yes Date Notified: 07/22/21 Time Notified: 09:56 Method of Notification: Text Comments:: Text sent via [employer] phone 07/22/21 12:25 Consult: General Surgery Routine Consulting Provider: Ivan Gonsalez Reason for Consult: Abnormal gallbladder USG EMERGENT Consult: No Notified: Yes Date Notified: 07/22/21 Time Notified: 12:35 Method of Notification: Text Reason For Visit: ABD PAIN Diagnosis Discharge Diagnosis (1) Cholelithiasis and cholecystitis without obstruction: Status: Resolved Code(s): K80.10 - Calculus of gallbladder with chronic cholecystitis without obstruction Qualifiers: Cholecystitis acuity: acute Cholelithiasis location: gallbladder Qualified Code(s): K80.00 - Calculus of gallbladder with acute cholecystitis without obstruction (2) Intractable abdominal pain: Status: Resolved Code(s): R10.9 - Unspecified abdominal pain (3) GERD (gastroesophageal reflux disease): Status: Chronic Code(s): K21.9 - Gastro-esophageal reflux disease without esophagitis Medications at Discharge Home Medications oxycodone-acetaminophen [Percocet] 1 tab PO Q4H PRN 5 Days #20 tab 07/22/21 pantoprazole [Protonix] 40 mg PO DAILY 30 Days #30 tab 07/23/21 Hospital Course Operations cholecystecomy (lap sedrick 07/23/21) Procedures None Summary of Care Provided Minutes Spent on Discharge: 35 Hospital Course: 41-year-old with past medical history of GERD, who comes in with intermittent epigastric and right upper quadrant pain that has been ongoing for several months, worsening over the last couple of days prior to admission. This was associated with nausea and vomiting. Patient used to take Pepto- Bismol but that was not helping anymore. Denied any fever or chills. Her admi tting CT of the abdomen pelvis on admission showed some sludge in the gallbladder. Patient was admitted [facility] floor for pain control and an ultrasound of the gallbladder showed cholelithiasis, sludge, trace pericholecystic fluid suggestive for acute cholecystitis General surgery and GI were consulted. Patient underwent laparoscopic cholecystectomy on 07/22/21. Postoperatively, patient continued to do well. She was discharged home on PPI daily. She will follow-up if her abdominal pain persists with GI. She also follow-up with her primary care doctor within 1 week. Physical Exam Narrative Physical exam: General: Alert, Oriented x3, Cooperative, in pain, mildly dehydrated HEENT: Atraumatic Oral: Moist oral Mucosa Neck: Supple Lungs: Diminished to auscultation Cardiovascular: HS I+II, regular, no murmurs Abdomen: Bowel Sounds Present, soft, laparoscopic dressing in situ, Extremities: No edema Weight / BMI Weight Weight: 75.206 kg Body Mass Index (BMI) 28.8 ABG / Lab / Microbiology Data Result Diagrams: 07/23/21 07:55 07/23/21 07:55 Laboratory: Laboratory Results - last 24 hr 07/22/21 13:56: Urine Test Negative 07/23/21 07:55: WBC 13.4 H, RBC 4.59, Hgb 12.8, Hct 38.3, MCV 83.4, MCH 27.9, MCHC 33.4, RDW Std Deviation 36.4, RDW Coeff of German 11.9, Plt Count 249, MPV 9.8, Immature Gran % (Auto) 0.400, Neut % (Auto) 79.7 H, Lymph % (Auto) 11.3 L, [place] % (Auto) 8.5, Eos % (Auto) 0.0, Baso % (Auto) 0.1, Absolute Neuts (auto) 10.7 H, Absolute Lymphs (auto) 1.51, Nucleated RBC % 0 07/23/21 07:55: Sodium 139, Potassium 3.7, Chloride 108 H, Carbon Dioxide 24.0, Anion Gap 7, BUN 8, Creatinine 0.74, Estim Creat Clear Calc 84.43, Est GFR (MDRD) Af Amer 113, Est GFR (MDRD) Non-Af 93, BUN/Creatinine Ratio 10.9, Glucose 113 H, Calcium 8.3 L, Total Bilirubin 0.60, AST 81 H, ALT 65 H, Alkaline Phosphatase 62, Total Protein 6.5, Albumin 2.9 L, Globulin 3.6, Albumin/Globulin Ratio 0.8 L Microbiology: Microbiology 07/22/21 14:55 Interface Orders SARS-CoV-2 Antigen (Rapid) - Final Radiography Diagnostic Testing: Radiology Impression Gallbladder Ultrasound 07/22/21 05:55 IMPRESSION: Cholelithiasis and gallbladder sludge with slight gallbladder wall thickening and trace pericholecystic fluid which may relate to acute cholecystitis in the appropriate clinical setting. HIDA scan could also be obtained for further assessment. Electronically Signed: Carlos Avila, at 11:35 EDT , Cholangiogram 07/22/21 15:45 IMPRESSION: Fluoroscopy provided during an intraoperative cholangiogram. Electronically Signed: Brian Toro, at 22:05 EDT , D/C Instructions Discharge Diet: Light diet - advance as tolerated May shower in (days): 1 (with the bandage in place.) Additional Activity Instructions: Pain medication may cause nausea. You should typically eat light foods as you take your pain medications. Pain medication may also cause constipation. If this is a problem for you, please discuss with your doctor. Call your doctor if your incision/area has: Continuous Slow Oozing, Sudden Increased Bleeding, Increased Pain/ Swelling, Increased Redness and Foul Smelling Discharge Call your doctor if you observe: Fever of 101 or Higher Suture Line Care: Avoid Pulling/Pushing and Avoid Pinching/Bending Additional Dressing/Incision Instructions: Leave operative bandaids on for 2 days. When you remove dressing, leave Steri-Strips on until your follow-up appointment, or until the Steri-Strips fall off on their own. Please Follow Up With: Patti Penny PA-C When: Call office to schedule an appointment to be seen in 7 days after surgery. Meaningful Use Info Meaningful Use Diagnoses (Choose all that apply): None applicable Discharge Plan Admission Admit Date/Time: 07/21/21 23:48 Primary Reason for Your Visit: Acute abdominal pain Attending Provider: Carie Rojas Primary Care Provider: Care Physician,No Primary Consulting Providers: Friend,Augustus ; Ivan Gonsalez Instructions Additional Instructions / Restrictions: You can take Ibuprofen 400mg every 6-8 hours alternating with Tylenol 650mg every 6 hours as needed for pain. You will need to see your primary care doctor within 1 week for repeat blood work. Discharge Orders/Prescriptions Prescriptions: New oxycodone-acetaminophen [Percocet] 5-325 mg tablet 1 tab PO Q4H PRN (Reason: pain) 5 Days Qty: 20 RF: 0 pantoprazole [Protonix] 40 mg tablet,delayed release (DR/EC) 40 mg PO DAILY 30 Days Qty: 30 RF: 0 Referrals / Follow Up: Augustus Damon DO [STAFF PHYSICIAN] - Within 2 Weeks (if abdominal pain persists) Care Physician,No Primary [Primary Care Provider] - Patti Penny PA-C [PHYSICIAN TRANSMISSION ASSEMBLER] - Disposition Disposition (needs filled in before D/C Order can be placed): Home, Self Care Charges/Coding Visit Charges OBSV E&M: 53864 Observation care discharge
--- NOTE | 2021-07-23 10:35 | PHA.DC.MC ---
Pharmacy Service has performed discharge medication reconciliation and counseling for this patient. 1. OXYCODONE/ACETAMINOPHEN 5/325MG 1T PO Q4H PRN PAIN 2. PANTOPRAZOLE 40MG PO DAILY The patient's discharge medication list was reviewed for discrepancies and discrepancies were resolved. Home Medications oxycodone-acetaminophen [Percocet] 1 tab PO Q4H PRN 5 Days #20 tab 07/22/21 pantoprazole [Protonix] 40 mg PO DAILY 30 Days #30 tab 07/23/21 The patient was counseled on the following discharge medications and changes in medications for homegoing were reviewed. The Reason for Use, instructions for use, and potential side effects were reviewed for all new medications. The patient's questions regarding all of their medications were answered. The patient was able to verbally demonstrate an understanding of their discharge medications.
== END 2021-07-23 14:23 | disposition home or self-care (01) ==
LOC: ED 23:51 → MS3 07-22 00:13
PROVIDERS: Anesthesiology; Surgery; Admitting Provider Family Medicine; Emergency Provider Emergency Medicine; Visit Provider Internal Medicine
PROC: (CPT 47563; principal; 2021-07-22 14:30)
DX: K80.12 Calculus of gallbladder with acute and chronic cholecystitis without obstruction (principal); D72.829 Elevated white blood cell count, unspecified; K21.9 Gastro-esophageal reflux disease without esophagitis; E86.0 Dehydration
CPT/HCPCS: 47563; 36415; 74176; 74300; 76000; 76705; 80048; 80053; 81001; 81025; 83605; 83690; 84703; 85025; 87426; 88304; 93005; 96361; 96365; 96366; 96375; 96376; 99218; 99283; J7030; A4216; G0378; J2405